=== PATIENT | male | born 1980 | race Caucasian/White ===

== ENCOUNTER 2019-01-20 13:31 | Emergency (ER) | payer SELFPAY ==
[~2019-01-20] VITALS: Wt 82.5 kg
[2019-01-20] MEDS ORDERED: PROPOFOL 200 MG INJ IV STA (15:20)
--- NOTE | 2019-01-20 15:25 | ERD ---
ER Documentation Chief Complaint Chief Complaint JYA JAW BERONICA, HX TMJ HPI Patient is a 38 years old male with past medical history with esophageal stricture presents to the clinic for jaw dislocation X 4 hours. Patient reports history of jaw dislocation in the past which required ketamine with reduction. Patient states that he has tried to reduce the jaw dislocation without resolution and is requesting further evaluation. Patient states that he needed ketamine in the past, however, did not enjoy the side effects and is requesting to not be anesthetized. Patient reports significant pain. ROS All systems reviewed and are negative except as per history of present illness. PMhx/Soc Esophageal stricture Medical and Surgical Hx: pt denies Surgical Hx History of Surgery: No Anesthesia Reaction: No Hx Neurological Disorder: No Hx Respiratory Disorders: No Hx Cardiac Disorders: No Hx Miscellaneous Medical Probl: No Hx Alcohol Use: No Hx Substance Use: No Hx Tobacco Use: No Smoking Status: Never smoker FmHx Family History: No diabetes, No coronary disease, No other Physical Exam Vitals Vital Signs Date Temp Pulse Resp B/P (MAP) Pulse Ox O2 O2 Flow FiO2 Time Delivery Rate 01/20/19 98.1 89 18 140/89 99 13:36 (106) Physical Exam Const: No acute distress Head: Atraumatic Eyes: Normal Conjunctiva ENT: Normal External Ears, Nose and Mouth. Mandible frozen and unable to close. Tenderness to bilateral TMJ area. Ext: No cyanosis, or edema Neur: Awake and alert Psych: Normal Mood and Affect Procedures/MDM Attempt was made to reduce jaw dislocation without anesthesia as per patient's request without success. Patient will be transferred to ED [address] Spears after consultation with the attending. Departure Diagnosis: Primary Impression: Jaw dislocation Condition: Fair Patient Instructions: Dislocation, Other Joint KHADIJAH HAN PA-C January 20, 2019 15:25
[2019-01-20] MEDS ORDERED: LANS30CA PO (16:44)
--- NOTE | 2019-01-20 17:48 | ERD ---
ER Documentation Chief Complaint Chief Complaint JAY JAW BERONICA, HX TMJ HPI 38-year-old male presenting with bilateral jaw pain and complaints of dislocation. Patient states that he has a history of multiple episodes of TMJ dislocation. At times he has been able to self reduce at home but other times has required reduction by sedation. He has received ketamine before and is very opposed to it as he had an adverse reaction to the medication. Patient was initially seen by the PA and family practice physician on the fast track side of the ER where reduction without sedation was attempted and failed. Patient's care was then transferred to nv so I can perform mandibular reduction under sedation. Patient states that he was eating lunch today when this happened. He denies any trauma. He is complaining of bilateral TMJ soreness and is unable to close his mouth. No difficulty breathing. No other complaints. ROS All systems reviewed and are negative except as per history of present illness. Medications Home Meds Reported Medications Lansoprazole* (Lansoprazole*) 30 Mg Capsule.dr, 30 MG PO DAILY, CAP 01/20/19 Allergies Allergies: Coded Allergies: No Known Allergy (Unverified , 01/20/19) PMhx/Soc Medical and Surgical Hx: pt denies Surgical Hx History of Surgery: No Anesthesia Reaction: No Hx Neurological Disorder: No Hx Respiratory Disorders: No Hx Cardiac Disorders: No Hx Miscellaneous Medical Probl: Yes (TMJ dislocation) Hx Alcohol Use: No Hx Substance Use: No Hx Tobacco Use: No Smoking Status: Never smoker FmHx Family History: No diabetes Physical Exam Vitals Vital Signs Date Temp Pulse Resp B/P (MAP) Pulse Ox O2 O2 Flow FiO2 Time Delivery Rate 01/20/19 99.1 98 16 139/90 100 Room Air 21:05 (106) 01/20/19 98 2.0 20:14 01/20/19 100 4.0 17:25 01/20/19 98.1 89 18 140/89 99 13:36 (106) Physical Exam Const: No acute distress, mouth open Head: Atraumatic Eyes: Normal Conjunctiva ENT: Mouth held in the open position, unable to close. Bilateral TMJ mild tenderness. Intraoral exam normal. Neck: Full range of motion. No meningismus. Resp: Clear to auscultation bilaterally Cardio: Regular rate and rhythm, no murmurs Ext: No cyanosis, or edema Neur: Awake and alert Psych: Normal Mood and Affect Results 24 hrs Current Medications Medications Dose Sig/David Start Time Status Last (Trade) Ordered Route PRN Stop Time Admin Dose Reason Admin Propofol 160 mg ONCE STAT 01/20/19 DC 01/20/19 (Diprivan) IV 15:20 17:00 01/20/19 15:22 Fentanyl 50 mcg ONCE ONCE 01/20/19 DC 01/20/19 (Sublimaze) IV 19:30 19:21 01/20/19 19:31 Propofol 160 mg ONCE ONCE 01/20/19 DC (Diprivan) IV 19:30 01/20/19 19:31 Ketorolac 30 mg ONCE STAT 01/20/19 DC 01/20/19 Tromethamine IV 20:27 20:30 (Toradol) 01/20/19 20:28 Procedures/MDM ED COURSE Procedures: Procedural Sedation #1: Pre-assessment performed. See preceding complete history and physical for details. Time out performed. See sedation documentation for details. Risk, benefits and alternatives were discussed with the patient. Medication(s): Propofol Complications: No hypoxic or apneic events Recovered without incident. A minimum of 16 minutes of face to face time was performed including preparation, sedation and recovery time. Mandible reduction by me #1: Anesthesia: Moderate sedation with propofol Location: Bilateral TMJ dislocation Technique: Gentle traction and manipulation Results: Baptism of normal anatomic positioning. Head and mandible stabilized with elastic dressing However when the patient recovered from sedation, he started talking and his jaw spontaneously dislocated again. Another procedural sedation was done with another reduction under sedation with jainism of normal anatomic positioning. However when the patient woke up, he felt his jaw slip out of place yet again. Procedural Sedation #2: Pre-assessment performed. See preceding complete history and physical for details. Time out performed. See sedation documentation for details. Risk, benefits and alternatives were discussed with the patient. Medication(s): Propofol Complications: No hypoxic or apneic events Recovered without incident. A minimum of 16 minutes of face to face time was performed including preparation, sedation and recovery time. Mandible reduction by me #3: Anesthesia: Moderate sedation with propofol Location: Bilateral TMJ dislocation Technique: Gentle traction and manipulation Results: Baptism of normal anatomic positioning. This time a more secure elastic bandage was placed, much more tightly. When the patient woke up, I advised him not to speak. He had no respiratory distress and was able to breathe normally and handle his secretions without any difficulty. During the patient's ED stay, I did speak with the ENT on-call, Dr. Roddy Gamez. He recommended the patient follow-up with an oral maxillofacial surgeon outpatient due to his recurrent TMJ dislocations. He recommended Dr. Spenser Valencia. I spoke with Dr. Valencia and he will be happy to see the patient tomorrow morning. Patient is agreeable with this plan. Only liquid diet with straw has been recommended until he is cleared by Dr. Valencia to advance diet. Once the patient had completely recovered from sedation, he was discharged from the ER. I instructed patient and nursing to have a friend or family member pickling drum operator the patient as he will not be able to drive due to recent sedation. Departure Diagnosis: Primary Impression: Jaw dislocation Encounter type: initial encounter Qualified Codes: S03.00XA - Dislocation of jaw, unspecified side, initial encounter Condition: Stable Patient Instructions: Mandible Dislocation Additional Instructions: You will need to make an appointment for follow up with an Oromaxillofacial surgeon. Return to the ER for any worsening symptoms. KHRIS GOULD MD January 20, 2019 17:48
[2019-01-20] MEDS ORDERED: PROPOFOL 200 MG INJ IV ONE (19:30)
[2019-01-20] MEDS ORDERED: FENTAnyl 50 MCG/ML VIAL IV ONE (19:30)
[2019-01-20] MEDS ORDERED: KETOROLAC 30 MG INJ IV STA (20:27)
[2019-01-20 21:05] VITALS: BP 139/90; PULSE 98; RESP 16
== END 2019-01-20 21:45 | disposition left against medical advice (07) ==
LOC: FTE 13:31 → E/R 21:45
DX: S03.00XA Dislocation of jaw, unspecified side, initial encounter (principal); X58.XXXA Exposure to other specified factors, initial encounter; Y92.9 Unspecified place or not applicable
CPT/HCPCS: 21480; 70110; 94770; 96374; 96375; 99285; J1885; J3010